=== PATIENT | female | born 1940 | race Two or more races ===

== ENCOUNTER 2020-10-16 06:35 | Emergency (ER) | payer OTHER ==
[~2020-10-16] VITALS: Ht 157.5 cm; Wt 54.4 kg
[~2020-10-16 06:35] MED LIST: ALL DAY ALLERGY10 M3; BENADRYL50 MG PO; CAMBIA50 MG; GABAPENTIN800 MG; GLUCOPHAGE XR500 MG; LISINOPRIL10 MG; LOSARTAN-HCTZ1 EACH; METFORMIN HCL500 MG; PEPCID20 MG PO; PRAVASTATIN SOD40 MG; PRINIVIL5 MG; TIZANIDINE HCL4 M1; TRAMADOL HCL50 MG; ULTRAM50 MG; VITAMIN D-32000 UNIT
== END 2020-10-16 10:14 | disposition home or self-care (01) ==
LOC: ER 06:35
DX: R04.0 Epistaxis (principal)

== ENCOUNTER → 2020-12-21 | Emergency (ER) | payer OTHER ==
[~2020-12-21] VITALS: Ht 157.5 cm; Wt 56.7 kg
== END | disposition home or self-care (01) ==
LOC: ER 08:28
DX: T78.3XXA Angioneurotic edema, initial encounter (principal); E11.9 Type 2 diabetes mellitus without complications; I10 Essential (primary) hypertension; Z79.84 Long term (current) use of oral hypoglycemic drugs

== ENCOUNTER 2023-06-21 17:11 | Inpatient (IN) | payer OTHER ==
[~2023-06-21] VITALS: Ht 160 cm; Wt 54.4 kg
[2023-06-21 17:57] LABS: HEMATOCRIT 33.6 % (36.0-45.00); HEMOGLOBIN 10.9 g/dL (12.0-15.00); MEAN CELL VOLUME 83.1 fL (80.00-100.00); MEAN CORPUSCULAR HEMOGLOBIN 26.9 pg (27.00-32.0); MEAN CORPUSCULAR HGB CONC 32.4 g/dl (32.0-36.0); PLATELET COUNT 364 K/uL (150-450); RED BLOOD COUNT 4.04 M/uL (4.00-6.00); RED CELL DISTRIBUTION WIDTH 14.7 % (11.5-14.5)
[2023-06-21 18:23] LABS: ALBUMIN 3.4 gm/dL (3.4-5.0); BILIRUBIN TOTAL 0.29 mg/dL (0.3-1.2); CALCIUM 10.2 mg/dL (8.5-10.1); CREATININE SERUM 0.67 mg/dL (0.55-1.02); GFR 83.85; GLOBULINA 3.6 G/DL (2.4-3.5); POTASSIUM 4.56 mEq/L (3.5-5.1)
[2023-06-21 18:25] LABS: PH,URINE 5.5 (5.0-8.0); URINE APPEARANCE Turbid; URINE BILIRRUBIN Small (NEGATIVE); URINE BLOOD Small; URINE COLOR Red; URINE GLUCOSE Negative (NEGATIVE); URINE LEUKOCYTE Large; URINE NITRATE Positive
[2023-06-21 18:28] LABS: URINE BACTERIA 2934.5 uL (0.0-1933)
[2023-06-21 18:43] LABS: URINE PROTEIN 100 (NEGATIVE); URINE RBC > 10558.9 uL (0.0-20.8)
[2023-06-22 02:26] LABS: INR 0.96; PARTIAL THROMBOPLASTIN TIME 24.5 SECONDS (22.0-34.0); PROTHROMBIN TIME 10.1 SECONDS (9.0-11.5)
[2023-06-23] MEDS ORDERED: CLOPIDOGREL BIS75 MG (10:22)
[2023-06-23] MEDS ORDERED: METFORMIN HCL500 M4 (10:22)
[2023-06-23] MEDS ORDERED: HYDROCHLOROTH12.5 MG (10:22)
[2023-06-23] MEDS ORDERED: RESTORIL15 MG (10:22)
[2023-06-23] MEDS ORDERED: CLONAZEPAM1 MG (10:23)
[2023-06-23] MEDS ORDERED: TRAZODONE HCL50 MG (10:23)
[2023-06-24 04:11] LABS: URINE APPEARANCE Clear; URINE BILIRRUBIN Negative (NEGATIVE); URINE BLOOD Moderate; URINE COLOR Yellow; URINE GLUCOSE Negative (NEGATIVE); URINE LEUKOCYTE Moderate; URINE NITRATE Negative; URINE PROTEIN Negative (NEGATIVE); URINE UROBILINOGEN 0.2 E.U./dl
[2023-06-24 04:14] LABS: URINE BACTERIA 50.3 uL (0.0-1933); URINE RBC 30.4 uL (0.0-20.8); URINE WBC 48.3 uL (0.0-23.2)
[2023-06-24 06:03] LABS: ALBUMIN 2.8 gm/dL (3.4-5.0); CALCIUM 9.5 mg/dL (8.5-10.1); CREATININE SERUM 0.6 mg/dL (0.55-1.02); GFR 95.24; PHOSPHOROUS 3.8 mg/dL (2.5-4.9); POTASSIUM 3.93 mEq/L (3.5-5.1)
[2023-06-24 06:14] LABS: HEMATOCRIT 27.6 % (36.0-45.00); HEMOGLOBIN 9.2 g/dL (12.0-15.00); MEAN CORPUSCULAR HEMOGLOBIN 27.6 pg (27.00-32.0); MEAN CORPUSCULAR HGB CONC 33.2 g/dl (32.0-36.0); PLATELET COUNT 295 K/uL (150-450); RED BLOOD COUNT 3.33 M/uL (4.00-6.00); RED CELL DISTRIBUTION WIDTH 14.8 % (11.5-14.5)
[2023-06-25 06:49] LABS: HEMATOCRIT 25.1 % (36.0-45.00); MEAN CELL VOLUME 83.3 fL (80.00-100.00); MEAN CORPUSCULAR HGB CONC 33.8 g/dl (32.0-36.0); PLATELET COUNT 272 K/uL (150-450); RED BLOOD COUNT 3.01 M/uL (4.00-6.00); RED CELL DISTRIBUTION WIDTH 14.3 % (11.5-14.5)
[2023-06-25 07:17] LABS: HEMOGLOBIN 8.5 g/dL (12.0-15.00); MEAN CORPUSCULAR HEMOGLOBIN 28.2 pg (27.00-32.0)
[2023-06-27 08:16] LABS: HEMATOCRIT 25.3 % (36.0-45.00); MEAN CELL VOLUME 82.5 fL (80.00-100.00); MEAN CORPUSCULAR HGB CONC 33.7 g/dl (32.0-36.0); PLATELET COUNT 252 K/uL (150-450); RED BLOOD COUNT 3.06 M/uL (4.00-6.00); RED CELL DISTRIBUTION WIDTH 14.8 % (11.5-14.5)
[2023-06-27 08:45] LABS: HEMOGLOBIN 8.5 g/dL (12.0-15.00); MEAN CORPUSCULAR HEMOGLOBIN 27.7 pg (27.00-32.0)
== END 2023-06-27 13:28 | disposition home or self-care (01) | DRG 690 ==
LOC: ER → MEDJ 22:25 → SEC-K 22:25 → MEDJ 06-22 01:08
PROVIDERS: General Practice; Internal Medicine; ADMIT Internal Medicine; ATTEND Internal Medicine
PROC: BW21ZZZ Computerized Tomography (CT Scan) of Abdomen and Pelvis (ICD-10-PCS; principal; 2023-06-21)
DX: N39.0 Urinary tract infection, site not specified (principal); R31.0 Gross hematuria; B96.20 Unspecified Escherichia coli [E. coli] as the cause of diseases classified elsewhere; I10 Essential (primary) hypertension; E78.5 Hyperlipidemia, unspecified; E11.9 Type 2 diabetes mellitus without complications; Z79.4 Long term (current) use of insulin; Z86.73 Personal history of transient ischemic attack (TIA), and cerebral infarction without residual deficits

== ENCOUNTER 2023-11-01 18:17 | Inpatient (IN) | payer OTHER ==
[~2023-11-01] VITALS: Ht 167.6 cm; Wt 45.4 kg
[~2023-11-01 18:17] MED LIST changes: +CLONAZEPAM1 MG; +CLOPIDOGREL BIS75 MG; +HYDROCHLOROTH12.5 MG; +METFORMIN HCL500 M4; +RESTORIL15 MG; +TRAZODONE HCL50 MG
[2023-11-01 20:02] LABS: HEMATOCRIT 30.1 % (36.0-45.00); HEMOGLOBIN 10.1 g/dL (12.0-15.00); MEAN CELL VOLUME 80.5 fL (80.00-100.00); MEAN CORPUSCULAR HEMOGLOBIN 27.1 pg (27.00-32.0); MEAN CORPUSCULAR HGB CONC 33.6 g/dl (32.0-36.0); PLATELET COUNT 309 K/uL (150-450); RED BLOOD COUNT 3.74 M/uL (4.00-6.00); RED CELL DISTRIBUTION WIDTH 15.5 % (11.5-14.5)
[2023-11-01 20:34] LABS: ALBUMIN 3.3 gm/dL (3.4-5.0); BILIRUBIN TOTAL 0.33 mg/dL (0.3-1.2); CALCIUM 9.6 mg/dL (8.5-10.1); CREATININE SERUM 0.52 mg/dL (0.55-1.02); GFR 112.34; GLOBULINA 3.4 G/DL (2.4-3.5); POTASSIUM 4.45 mEq/L (3.5-5.1); TOTAL PROTEIN 6.7 gm/dL (6.4-8.2)
[2023-11-01] MEDS ORDERED: NITROGLYCERIN IN 5 % DEXTROSE 250 ML IV SCH (21:24)
[2023-11-01] MEDS ORDERED: ATORVASTATIN CALCIUM 40 MG TABLET PO SCH (21:24)
[2023-11-01] MEDS ORDERED: ENOXAPARIN SODIUM 40 MG/0.4 ML SYRINGE SUBCUTANEO SCH (21:25)
[2023-11-01] MEDS ORDERED: INSULIN LISPRO 1,000 UNIT/10 ML UNITS SUBCUTANEO PRN (21:30)
[2023-11-01] MEDS ORDERED: CLOPIDOGREL BISULFATE 75 MG TABLET PO ONE (21:30)
[2023-11-01] MEDS ORDERED: DEXTROSE 50 % IN WATER 0.5 G/ML DISP.SYRIN IV PRN (21:30)
[2023-11-01] MEDS ORDERED: ACETAMINOPHEN 500 MG GEL..CAP PO PRN (21:30)
[2023-11-01] MEDS ORDERED: 0.9 % SODIUM CHLORIDE 1,000 ML IV SCH (21:30)
[2023-11-01 22:04] LABS: URINE APPEARANCE Cloudy; URINE BILIRRUBIN Negative (NEGATIVE); URINE COLOR Yellow; URINE GLUCOSE Negative (NEGATIVE); URINE LEUKOCYTE Large; URINE NITRATE Positive; URINE PROTEIN 30 (NEGATIVE)
[2023-11-01 22:08] LABS: URINE EPITHELIAL CELLS 1.7 uL (0.0-38.8); URINE RBC 32.3 uL (0.0-20.8); URINE WBC 2583.8 uL (0.0-23.2)
[2023-11-01 22:13] LABS: URINE BACTERIA > 9821.5 uL (0.0-1933); URINE BLOOD TRACES
[2023-11-02 01:27] LABS: D DIMER 1.26 MG/L; INR 0.96; PARTIAL THROMBOPLASTIN TIME 27.4 SECONDS (22.0-34.0); PROTHROMBIN TIME 10.1 SECONDS (9.0-11.5)
[2023-11-02] MEDS ORDERED: NITROGLYCERIN IN 5 % DEXTROSE 250 ML IV SCH (07:00)
[2023-11-02] MEDS ORDERED: LOSARTAN POTASSIUM 25 MG TABLET PO SCH (09:00)
[2023-11-02] MEDS ORDERED: METOPROLOL SUCCINATE 25 MG TAB.SR.24H PO SCH (09:00)
[2023-11-02] MEDS ORDERED: CLOPIDOGREL BISULFATE 75 MG TABLET PO SCH (09:00)
[2023-11-02] MEDS ORDERED: FAMOTIDINE/PF 20 MG in 0.9 % SODIUM CHLORIDE 8 ML IV PUSH SCH (09:00)
[2023-11-02] MEDS ORDERED: CEFTRIAXONE SODIUM 2,000 MG VIAL IV SCH (14:15)
[2023-11-02] MEDS ORDERED: MEROPENEM 500 MG/VIAL VIAL IV SCH (21:00)
[2023-11-03] MEDS ORDERED: TRAMADOL HCL 50 MG TABLET PO SCH (21:00)
[2023-11-03] MEDS ORDERED: TRAZODONE HCL 50 MG TABLET PO SCH (21:00)
[2023-11-04] MEDS ORDERED: CLONAZEPAM 1 MG TABLET PO SCH (09:00)
[2023-11-04] MEDS ORDERED: FLUCONAZOLE IN NACL,ISO-OSM 200 MG/100 ML PIGGYBAG IV STA (17:50)
[2023-11-04] MEDS ORDERED: FLUCONAZOLE IN NACL,ISO-OSM 200 MG/100 ML PIGGYBAG IV SCH (17:51)
[2023-11-04] MEDS ORDERED: AMPICILLIN SODIUM/SULBACTAM NA 1,500 MG VIAL IV SCH ×2 (21:00)
[2023-11-05 07:28] LABS: HEMATOCRIT 25.4 % (36.0-45.00); MEAN CORPUSCULAR HGB CONC 33.7 g/dl (32.0-36.0); PLATELET COUNT 263 K/uL (150-450); RED BLOOD COUNT 3.22 M/uL (4.00-6.00); RED CELL DISTRIBUTION WIDTH 16.3 % (11.5-14.5)
[2023-11-05 07:38] LABS: HEMOGLOBIN 8.6 g/dL (12.0-15.00); MEAN CORPUSCULAR HEMOGLOBIN 26.7 pg (27.00-32.0)
[2023-11-05 07:53] LABS: ERYTHROCYTE SEDIMENTATION RATE 8 mm/hr
[2023-11-05 07:54] LABS: ALBUMIN 2.7 gm/dL (3.4-5.0); ALKALINE PHOSPHATASE 35 U/L (50-136); ALT/SGPT 9 U/L (12-78); ANION GAP 9 (10.0-20.0); AST/SGOT 12 U/L (15-37); BILIRUBIN TOTAL 0.36 mg/dL (0.3-1.2); BLOOD UREA NITROGEN 4 mg/dL (7-18); BUN CREA RATIO 9 (7.0-25.0); CALCIUM 8.7 mg/dL (8.5-10.1); CARBON DIOXIDE 24 mEq/L (21-32); CHLORIDE 112 mmol/L (98-107); CREATININE SERUM 0.45 mg/dL (0.55-1.02); GFR 132.74; GLOBULINA 2.7 G/DL (2.4-3.5); GLUCOSE FASTING 94 mg/dL (65-100); OSMOLALITY SERUM 278 MOSM/KG (275-295); POTASSIUM 3.99 mEq/L (3.5-5.1); SODIUM 141 mmol/L (136-145); TOTAL PROTEIN 5.4 gm/dL (6.4-8.2)
[2023-11-05 07:59] LABS: C-REACTIVE PROTEIN < 0.29 MG/DL (0.00-0.29)
[2023-11-05 09:00] LABS: URINE APPEARANCE Cloudy; URINE BILIRRUBIN Negative (NEGATIVE); URINE BLOOD Moderate; URINE COLOR Yellow; URINE GLUCOSE Negative (NEGATIVE); URINE LEUKOCYTE Large; URINE NITRATE Negative; URINE PROTEIN Negative (NEGATIVE); URINE UROBILINOGEN 0.2 E.U./dl
[2023-11-05 09:03] LABS: URINE BACTERIA 954.9 uL (0.0-1933); URINE EPITHELIAL CELLS 7.8 uL (0.0-38.8); URINE RBC 42.1 uL (0.0-20.8); URINE WBC 866.7 uL (0.0-23.2)
[2023-11-05] MEDS ORDERED: Cyanocobalamin/Mecobalamin 1 TAB.SL SL SCH (15:13)
[2023-11-05] MEDS ORDERED: SOD FERRIC GLUC COMPLX/SUCROSE 62.5 MG in 0.9 % SODIUM CHLORIDE 50 ML IV SCH (15:13)
[2023-11-05] MEDS ORDERED: FLUCONAZOLE IN NACL,ISO-OSM 2 MG/ML ML IV SCH (17:00)
[2023-11-06] MEDS ORDERED: FAMOTIDINE/PF 20 MG/2 ML VIAL ONE (07:43)
[2023-11-06] MEDS ORDERED: AMINO ACIDS/PROTEIN HYDROLYS 30 ML BLIST.PACK PO SCH (12:21)
[2023-11-07] MEDS ORDERED: TRAMADOL HCL 50 MG TABLET PO SCH (17:00)
[2023-11-07] MEDS ORDERED: BISACODYL 5 MG TABLET.EC PO SCH (18:06)
[2023-11-08] MEDS ORDERED: CLOTRIMAZOLE 30 GM TUBE TOP SCH (17:00)
[2023-11-08] MEDS ORDERED: FUROsemide 20 MG/2 ML VIAL IV SCH (23:00)
[2023-11-09] MEDS ORDERED: SOD FERRIC GLUC COMPLX/SUCROSE 62.5 MG/5 ML AMPUL IV ONE (07:32)
[2023-11-09] MEDS ORDERED: FAMOTIDINE/PF 20 MG/2 ML VIAL ONE (07:33)
[2023-11-09] MEDS ORDERED: MEROPENEM 500 MG/VIAL VIAL IV SCH (17:00)
[2023-11-09 21:01] LABS: HEMATOCRIT 38.3 % (36.0-45.00); HEMOGLOBIN 12.8 g/dL (12.0-15.00); MEAN CORPUSCULAR HEMOGLOBIN 27.4 pg (27.00-32.0); MEAN CORPUSCULAR HGB CONC 33.3 g/dl (32.0-36.0); PLATELET COUNT 225 K/uL (150-450); RED BLOOD COUNT 4.67 M/uL (4.00-6.00); RED CELL DISTRIBUTION WIDTH 16.5 % (11.5-14.5)
[2023-11-10] MEDS ORDERED: FAMOTIDINE/PF 20 MG/2 ML VIAL ONE (07:51)
== END 2023-11-10 16:44 | disposition home or self-care (01) | DRG 281 ==
LOC: ER 18:17 → ICU-2 21:49 → SURH 21:49 → SEC-K 11-03 14:15 → SURH 11-03 20:48
PROVIDERS: General Practice; Internal Medicine Infectious Disease; ADMIT Internal Medicine; ATTEND Internal Medicine
PROC: B24BZZZ Ultrasonography of Heart with Aorta (ICD-10-PCS; 2023-11-01)
PROC: 02HV33Z Insertion of Infusion Device into Superior Vena Cava, Percutaneous Approach (ICD-10-PCS; principal; 2023-11-04)
PROC: 4A12X4Z Monitoring of Cardiac Electrical Activity, External Approach (ICD-10-PCS; 2023-11-04)
PROC: 30233N1 Transfusion of Nonautologous Red Blood Cells into Peripheral Vein, Percutaneous Approach (ICD-10-PCS; 2023-11-08)
DX: I21.4 Non-ST elevation (NSTEMI) myocardial infarction (principal); N39.0 Urinary tract infection, site not specified; I24.9 Acute ischemic heart disease, unspecified; B96.20 Unspecified Escherichia coli [E. coli] as the cause of diseases classified elsewhere; L89.159 Pressure ulcer of sacral region, unspecified stage; L08.9 Local infection of the skin and subcutaneous tissue, unspecified; B96.5 Pseudomonas (aeruginosa) (mallei) (pseudomallei) as the cause of diseases classified elsewhere; B95.2 Enterococcus as the cause of diseases classified elsewhere; B96.4 Proteus (mirabilis) (morganii) as the cause of diseases classified elsewhere; B96.89 Other specified bacterial agents as the cause of diseases classified elsewhere; E78.5 Hyperlipidemia, unspecified; I11.9 Hypertensive heart disease without heart failure; D64.9 Anemia, unspecified; Z74.01 Bed confinement status

== ENCOUNTER 2024-04-24 17:14 | Inpatient (IN) | payer OTHER ==
[~2024-04-24] VITALS: Ht 121.9 cm; Wt 45.4 kg
[~2024-04-24 17:14] MED LIST changes: +CLONAZEPAM1 MG PO; +GLUMETZA500 MG PO; +LIPITOR40 M1 PO; +NOXIFOL-D32500 UNIT; +PLAVIX75 MG
--- NOTE | 2024-04-24 17:31 | NUR ---
SE RECIBE FEMINA ALERTA Y ORIENTADA X3 EN COMPANIA DE MCCARTHY HIJA QUIEN REFEIRE PRESENTA SANGRADO VAGINAL CON COAGULOS QUE COMENZO EL BRANDY DE HOY. SE ARANZA S/V Y SE UBICA.
[2024-04-24] MEDS ORDERED: FAMOTIDINE/PF 20 MG/2 ML VIAL ONE (17:44)
[2024-04-24] MEDS ORDERED: 0.9 % SODIUM CHLORIDE 1,000 ML IV ONE (17:45)
[2024-04-24] MEDS ORDERED: FAMOtidine 10 MG/ML (4ML VIAL) IV ONE (17:45)
[2024-04-24 17:58] LABS: ABG PH 7.458 (7.35-7.45); ABG PO2 95.3 mmHg (80-100); ABG pCO2 40.8 mmHg (35-45); BASE EXCESS 4.1 mmol/l; BICARBONATE 28.2 mmol/l (23-25); SaO2 97.9 %; Tco2 29.5 mmol/l
[2024-04-24] MEDS ORDERED: METHYLPREDNISOLONE SOD SUCC 40 MG VIAL IV ONE (18:00)
[2024-04-24] MEDS ORDERED: DIPHENHYDRAMINE HCL 50 MG/ML VIAL 1ML IV ONE (18:00)
--- NOTE | 2024-04-24 18:01 | NUR ---
SE EDUCA PACIENTE Y FAMILIAR SOBRE EL [place] MEDICO Y ESTA REFIERE ENTENDER. SE CANALIZA Y SE COLOCA MEDICAMENTOS GUSTAVO ORDEN MEDICA. SE ARANZA MUESTRAS DE LABORATORIOS Y SE ENVIAN. PENDIENTE A CT SCAN , U/A Y FECAL. SE REALIZA EKG
--- NOTE | 2024-04-24 18:02 | NUR ---
GEMA RUSSO REALIZA LABORATORIOS Y ADMINISTRA MEDICAMENTOS GUSTAVO ORDEN MEDICA. SE SE ORIENTA A PTE SOBRE TRATAMIENTO, PTE REFIERE ENTENDER Y ACEPTAR. SE REALIZA EKG Y SE PRESENTA A DR. MONTENEGRO.
[2024-04-24 18:04] LABS: HEMOGLOBIN 10.8 g/dL (12.0-15.00); MEAN CORPUSCULAR HGB CONC 32.9 g/dl (32.0-36.0); PLATELET COUNT 238 K/uL (150-450); RED BLOOD COUNT 3.74 M/uL (4.00-6.00); RED CELL DISTRIBUTION WIDTH 12.5 % (11.5-14.5)
[2024-04-24 18:19] LABS: PARTIAL THROMBOPLASTIN TIME 29.5 SECONDS (22.0-34.0); PROTHROMBIN TIME 10.9 SECONDS (9.0-11.5)
[2024-04-24 18:25] LABS: ALBUMIN 3.1 gm/dL (3.4-5.0); BILIRUBIN TOTAL 0.28 mg/dL (0.3-1.2); CALCIUM 9.5 mg/dL (8.5-10.1); CREATININE SERUM 0.59 mg/dL (0.55-1.02); GFR 96.87; GLOBULINA 3.5 G/DL (2.4-3.5); POTASSIUM 4.12 mEq/L (3.5-5.1); TOTAL PROTEIN 6.6 gm/dL (6.4-8.2)
[2024-04-24 18:39] LABS: allen test SATISFACTORY; o2 21 %; puncture site RADIAL RIGHT
[2024-04-24] MEDS ORDERED: METHYLPREDNISOLONE SOD SUCC 125 MG VIAL ONE (18:55)
[2024-04-24] MEDS ORDERED: DIPHENHYDRAMINE HCL 50 MG/ML VIAL 1ML ONE (18:55)
[2024-04-24] MEDS ORDERED: ATORVASTATIN CALCIUM 40 MG TABLET PO SCH (21:52)
[2024-04-24] MEDS ORDERED: FAMOTIDINE/PF 20 MG in 0.9 % SODIUM CHLORIDE 8 ML IV PUSH SCH (21:52)
[2024-04-24] MEDS ORDERED: 0.9 % SODIUM CHLORIDE 1,000 ML IV SCH (22:00)
[2024-04-24] MEDS ORDERED: ACETAMINOPHEN 500 MG GEL..CAP PO PRN (22:00)
[2024-04-24] MEDS ORDERED: ONDANSETRON HCL 4 MG in 0.9 % SODIUM CHLORIDE 50 ML IV PRN (22:00)
[2024-04-24] MEDS ORDERED: CEFTRIAXONE SODIUM 2,000 MG in 0.9 % SODIUM CHLORIDE 100 ML IV SCH (22:16)
[2024-04-24] MEDS ORDERED: CEFTRIAXONE SODIUM 2,000 MG VIAL ONE (23:06)
[2024-04-24 23:14] LABS: URINE APPEARANCE Turbid; URINE BILIRRUBIN Small (NEGATIVE); URINE BLOOD Moderate; URINE COLOR Red; URINE GLUCOSE Negative (NEGATIVE); URINE KETONE Negative (NEGATIVE); URINE LEUKOCYTE Large; URINE NITRATE Positive; URINE UROBILINOGEN 0.2 E.U./dl
[2024-04-24 23:26] VITALS: BP 124/62; O2SAT 98
[2024-04-24 23:36] LABS: URINE EPITHELIAL CELLS 0.6 uL (0.0-38.8); URINE PROTEIN 100 (NEGATIVE); URINE RBC > 10558.9 uL (0.0-20.8)
[2024-04-25] VITALS (10 sets, daily range): BP systolic 107–148; BP diastolic 61–84; O2SAT 96–100
[2024-04-25 06:58] LABS: HEMATOCRIT 34.8 % (36.0-45.00); MEAN CELL VOLUME 85.7 fL (80.00-100.00); MEAN CORPUSCULAR HEMOGLOBIN 29.5 pg (27.00-32.0); MEAN CORPUSCULAR HGB CONC 34.5 g/dl (32.0-36.0); PLATELET COUNT 256 K/uL (150-450); RED BLOOD COUNT 4.06 M/uL (4.00-6.00); RED CELL DISTRIBUTION WIDTH 12.8 % (11.5-14.5)
[2024-04-25] MEDS ORDERED: HYDROCHLOROTHIAZIDE 12.5 MG CAPSULE PO SCH (09:00)
[2024-04-25] MEDS ORDERED: CLONAZEPAM 1 MG TABLET PO SCH (09:00)
[2024-04-25 12:28] LABS: ob NEGATIVE (NEGATIVE)
[2024-04-25] MEDS ORDERED: LACTOBACILLUS ACIDOPHILUS 1 CAP CAP PO SCH (17:00)
[2024-04-25] MEDS ORDERED: LACTOBACILLUS ACIDOPHILUS 1 CAP CAP PO ONE (18:18)
[2024-04-25] MEDS ORDERED: TRAZODONE HCL 50 MG TABLET PO SCH (21:00)
[2024-04-26] VITALS (14 sets, daily range): BP systolic 120–161; BP diastolic 68–96; O2SAT 99–100
[2024-04-26] MEDS ORDERED: LACTOBACILLUS ACIDOPHILUS 1 CAP CAP PO ONE (16:39)
[2024-04-26] MEDS ORDERED: NITROGLYCERIN IN 5 % DEXTROSE 250 ML IV SCH (18:15)
[2024-04-26] MEDS ORDERED: NITROGLYCERIN IN 5 % DEXTROSE 50 MG/250 ML BOTTLE IV ONE (18:23)
[2024-04-27] VITALS (11 sets, daily range): BP systolic 102–142; BP diastolic 62–84; O2SAT 98–100
[2024-04-27] MEDS ORDERED: NITROGLYCERIN IN 5 % DEXTROSE 250 ML IV SCH (06:30)
[2024-04-27] MEDS ORDERED: MEROPENEM 500 MG/VIAL VIAL IV SCH ×2 (09:15→13:00)
[2024-04-28] VITALS (19 sets, daily range): BP systolic 109–153; BP diastolic 69–93; O2SAT 99–100
[2024-04-28] MEDS ORDERED: CHLORHEXIDINE GLUCONATE 120 ML BOTTLE TOP ONE (09:06)
[2024-04-28] MEDS ORDERED: METOPROLOL TARTRATE 25 MG TABLET PO NR (11:00)
[2024-04-28] MEDS ORDERED: DEXTROSE 50 % IN WATER 0.5 G/ML DISP.SYRIN IV PRN (12:45)
[2024-04-28] MEDS ORDERED: INSULIN LISPRO 1,000 UNIT/10 ML UNITS SUBCUTANEO PRN (12:45)
[2024-04-28] MEDS ORDERED: LORazepam 2 MG/ML VIAL IV PRN (20:30)
[2024-04-28] MEDS ORDERED: METOPROLOL TARTRATE 25 MG TABLET PO SCH (21:00)
[2024-04-29] VITALS (10 sets, daily range): BP systolic 105–129; BP diastolic 57–85; O2SAT 100
[2024-04-29 07:48] LABS: HEMATOCRIT 26.3 % (36.0-45.00); MEAN CELL VOLUME 85.6 fL (80.00-100.00); MEAN CORPUSCULAR HEMOGLOBIN 29.9 pg (27.00-32.0); MEAN CORPUSCULAR HGB CONC 34.9 g/dl (32.0-36.0); PLATELET COUNT 208 K/uL (150-450); RED BLOOD COUNT 3.07 M/uL (4.00-6.00); RED CELL DISTRIBUTION WIDTH 12.7 % (11.5-14.5)
[2024-04-29 08:08] LABS: ALBUMIN 2.8 gm/dL (3.4-5.0); BILIRUBIN TOTAL 0.5 mg/dL (0.3-1.2); CALCIUM 8.2 mg/dL (8.5-10.1); CREATININE SERUM 0.35 mg/dL (0.55-1.02); GFR 176.98; GLOBULINA 2.4 G/DL (2.4-3.5); POTASSIUM 3.17 mEq/L (3.5-5.1); TOTAL PROTEIN 5.2 gm/dL (6.4-8.2)
[2024-04-29 08:11] LABS: C-REACTIVE PROTEIN 0.62 MG/DL (0.00-0.29)
[2024-04-29 08:28] LABS: HEMOGLOBIN 9.2 g/dL (12.0-15.00)
[2024-04-29 08:29] LABS: ERYTHROCYTE SEDIMENTATION RATE 6 mm/hr
[2024-04-29] MEDS ORDERED: FAMOtidine 20 MG TABLET PO SCH (09:00)
[2024-04-29] MEDS ORDERED: POTASSIUM CHLORIDE IN WATER 100 ML IV NR (11:18)
[2024-04-29] MEDS ORDERED: TRAMADOL HCL 50 MG TABLET PO PRN (14:30)
[2024-04-29 16:24] LABS: PH,URINE 7.5 (5.0-8.0); URINE APPEARANCE Clear; URINE BILIRRUBIN Negative (NEGATIVE); URINE BLOOD Large; URINE COLOR Yellow; URINE GLUCOSE Negative (NEGATIVE); URINE KETONE Negative (NEGATIVE); URINE LEUKOCYTE Trace; URINE NITRATE Negative; URINE PROTEIN Negative (NEGATIVE); URINE UROBILINOGEN 0.2 E.U./dl
[2024-04-29 16:26] LABS: URINE BACTERIA 278.3 uL (0.0-1933); URINE EPITHELIAL CELLS 6.4 uL (0.0-38.8); URINE RBC 95.7 uL (0.0-20.8); URINE WBC 75.8 uL (0.0-23.2)
[2024-04-30] VITALS (7 sets, daily range): BP systolic 108–136; BP diastolic 50–91; O2SAT 100
[2024-05-01 04:00] VITALS: BP 135/57; O2SAT 100
[2024-05-01 07:12] VITALS: BP 125/59; O2SAT 100
[2024-05-01 12:00] VITALS: BP 119/56; O2SAT 100
[2024-05-01 15:32] VITALS: BP 116/62; O2SAT 100
[2024-05-01 20:00] VITALS: BP 147/84; O2SAT 100
[2024-05-01 23:03] VITALS: BP 124/66; O2SAT 100
[2024-05-02 04:15] VITALS: BP 131/67; O2SAT 100
[2024-05-02 07:07] VITALS: BP 127/51; O2SAT 100
[2024-05-02 12:00] VITALS: BP 142/57; O2SAT 100
[2024-05-02 15:10] VITALS: BP 128/63; O2SAT 100
[2024-05-02 20:00] VITALS: BP 150/79; O2SAT 100
[2024-05-02 23:15] VITALS: BP 129/73; O2SAT 100
[2024-05-03 04:02] VITALS: BP 142/62; O2SAT 100
[2024-05-03 06:10] LABS: HEMATOCRIT 29.5 % (36.0-45.00); MEAN CORPUSCULAR HEMOGLOBIN 29.3 pg (27.00-32.0); PLATELET COUNT 230 K/uL (150-450); RED BLOOD COUNT 3.43 M/uL (4.00-6.00); RED CELL DISTRIBUTION WIDTH 13.2 % (11.5-14.5)
[2024-05-03 07:00] VITALS: BP 144/76; O2SAT 99
[2024-05-03 07:06] LABS: ALBUMIN 2.7 gm/dL (3.4-5.0); BILIRUBIN TOTAL 0.65 mg/dL (0.3-1.2); CALCIUM 8.9 mg/dL (8.5-10.1); CREATININE SERUM 0.37 mg/dL (0.55-1.02); GFR 165.98; GLOBULINA 2.8 G/DL (2.4-3.5); POTASSIUM 3.5 mEq/L (3.5-5.1); TOTAL PROTEIN 5.5 gm/dL (6.4-8.2)
[2024-05-03 07:07] LABS: C-REACTIVE PROTEIN 1.77 MG/DL (0.00-0.29)
[2024-05-03] MEDS ORDERED: ACETAMINOPHEN 500 MG GEL..CAP PO PRN (11:00)
[2024-05-03 12:00] VITALS: BP 135/77; O2SAT 100
[2024-05-03 15:22] VITALS: BP 129/63; BP 135/77; O2SAT 100
[2024-05-03 21:04] VITALS: BP 143/98; O2SAT 100
[2024-05-03 23:01] VITALS: BP 145/66; O2SAT 100
[2024-05-04 04:02] VITALS: BP 112/53; O2SAT 100
[2024-05-04 07:05] VITALS: BP 132/55; O2SAT 100
[2024-05-04 12:00] VITALS: BP 126/82; O2SAT 100
[2024-05-04 15:46] VITALS: BP 115/53; O2SAT 99
[2024-05-04 20:42] VITALS: BP 114/68; O2SAT 100
[2024-05-04 23:11] VITALS: BP 131/73; O2SAT 100
[2024-05-05] VITALS (7 sets, daily range): BP systolic 119–160; BP diastolic 54–75; O2SAT 98–100
[2024-05-05] MEDS ORDERED: TRAMADOL HCL 50 MG TABLET PO PRN (13:15)
[2024-05-05] MEDS ORDERED: TRAZODONE HCL50 MG PO (17:31)
[2024-05-05] MEDS ORDERED: INTESTINEX680 M1 PO (17:31)
[2024-05-05] MEDS ORDERED: LOPRESSOR25 MG PO (17:31)
[2024-05-05] MEDS ORDERED: HYDROCHLOROTH12.5 MG PO (17:31)
[2024-05-05] MEDS ORDERED: LEVOFLOXACIN500 MG PO (17:31)
[2024-05-05] MEDS ORDERED: LIPITOR40 M1 PO (17:31)
[2024-05-05] MEDS ORDERED: FAMOTIDINE20 MG PO (17:31)
[2024-05-06 04:00] VITALS: BP 151/84; O2SAT 100
[2024-05-06 07:03] VITALS: BP 130/74; O2SAT 100
[2024-05-06 11:48] VITALS: BP 130/54; O2SAT 100
== END 2024-05-06 13:10 | disposition home health service (06) | DRG 281 ==
LOC: ER 17:14 → ICU-2 22:16 → ICU 04-27 15:14
PROVIDERS: General Practice; Internal Medicine Infectious Disease; ADMIT Internal Medicine; ATTEND Internal Medicine
PROC: BW21YZZ Computerized Tomography (CT Scan) of Abdomen and Pelvis using Other Contrast (ICD-10-PCS; principal; 2024-04-24)
PROC: B246ZZZ Ultrasonography of Right and Left Heart (ICD-10-PCS; 2024-04-24)
PROC: 02HV33Z Insertion of Infusion Device into Superior Vena Cava, Percutaneous Approach (ICD-10-PCS; 2024-04-27)
DX: I21.4 Non-ST elevation (NSTEMI) myocardial infarction (principal); I31.9 Disease of pericardium, unspecified; N39.0 Urinary tract infection, site not specified; I24.9 Acute ischemic heart disease, unspecified; N93.8 Other specified abnormal uterine and vaginal bleeding; B96.29 Other Escherichia coli [E. coli] as the cause of diseases classified elsewhere; R31.0 Gross hematuria; Z74.01 Bed confinement status; Z66 Do not resuscitate; E11.9 Type 2 diabetes mellitus without complications; Z79.4 Long term (current) use of insulin